=== PATIENT | female | born 1970 | race Caucasian/White ===

== ENCOUNTER 2020-03-20 21:27 | Emergency (ER) | payer BC, MEDICARE ==
[~2020-03-20] VITALS: Ht 172.7 cm; Wt 57.9 kg
[~2020-03-20 21:27] MED LIST: ALBU8.5H8 INH; AMIT25TA PO; BUTA1CAP30 PO; CYCL-259 PO; DIAZ10TA PO; HALO1TAB PO; HYDR50TA99 PO; OMEP-110 PO; PRAZ1CAP2 PO; PROM25TA10 PO; QUET200T4 PO; TOPI50CA5 PO
[2020-03-20] MEDS ORDERED: PROMETHAZINE 25 MG/ML, 1ML IM ONE (21:55)
[2020-03-20] MEDS ORDERED: KETOROLAC 30 MG/1 ML IM ONE (22:00)
[2020-03-20] MEDS ORDERED: PROMETHAZINE 25 MG/ML, 1ML ONE (22:02)
[2020-03-20] MEDS ORDERED: KETOROLAC 30 MG/1 ML ONE (22:02)
--- NOTE | 2020-03-20 22:12 | NUR ---
Observed pt ambulate around dept, in NAD, steady gait. Pt medciated per order. PCXR done. Waiting for labs, EKG. aidet provided.
--- NOTE | 2020-03-20 22:15 | NUR ---
Lab here drawing blood.
[2020-03-20 22:36] LABS: BASOPHILS % (AUTO) 1 % (0-1); EOSINOPHILS % (AUTO) 2 % (1-7); LYMPHOCYTES % (AUTO) 40 % (22-44); MEAN CORPUSCULAR HGB CONC 33.7 g/dL (32.4-35.8); MEAN PLATELET VOLUME 7.3 fL (7.4-10.4); MONOCYTES % (AUTO) 5 % (2-9); NEUTROPHILS % (AUTO) 52 % (42-75); PLATELET COUNT 312 x10^3/uL (130-400); RED BLOOD COUNT 3.82 x10^6/uL (3.82-5.3); RED CELL DISTRIBUTION WIDTH 13.2 % (9.6-15.2)
[2020-03-20 22:39] LABS: MD NO
[2020-03-20 22:41] LABS: ALBUMIN 3.3 g/dL (3.4-5.0); ANION GAP 5 mmol/L (5-15); CALCIUM 8.7 mg/dL (8.5-10.1); CHLORIDE 115 mmol/L (98-107); CREATININE 0.75 mg/dL (0.55-1.02)
--- NOTE | 2020-03-20 22:51 | NUR ---
Pt asking for pain medications, antianxiety medications.
--- NOTE | 2020-03-20 23:07 | NUR ---
Pt in gurney sleeping, wakes up with verbal. States she still has pain wants pain medication and anti-anxiety meds. Pt is in NAD, RR equal and unlabored. Was sleeping upon entry to room.
[2020-03-20 23:08] VITALS: BP 124/88
--- NOTE | 2020-03-20 23:26 | NUR ---
Pt was noted to be vaping in treatment room. Pt given dc papers, instruct called for ride. Pt to fu with her pcp or clinic provided. Return To Er if worse or concerns.
--- NOTE | 2020-03-20 23:34 | NUR ---
Upon departing pt was caught going through room 31 cabinets.
== END 2020-03-20 23:36 | disposition home or self-care (01) ==
LOC: ED 23:00
DX: G43.701 Chronic migraine without aura, not intractable, with status migrainosus (principal); J00 Acute nasopharyngitis [common cold]; R05 Cough; M79.10 Myalgia, unspecified site; R09.81 Nasal congestion; R06.02 Shortness of breath; F17.210 Nicotine dependence, cigarettes, uncomplicated
CPT/HCPCS: 36415; 71045; 80048; 82040; 85025; 93005; 96372; 99285; 99406; J1885; J2550